=== PATIENT | male | born 1970 | race Caucasian/White ===

== ENCOUNTER → 2021-04-16 11:05 | Outpatient (BNVA) | payer OTHER, SELFPAY | PROVIDERS: Visit Provider Urology | DX: E29.1 Testicular hypofunction (principal) | CPT/HCPCS: Q3014 ==

== ENCOUNTER → 2021-05-08 13:20 | Outpatient (BNVA) | payer OTHER, SELFPAY | PROVIDERS: Visit Provider Urology | DX: E29.1 Testicular hypofunction (principal) | CPT/HCPCS: 96372; 99211 ==

== ENCOUNTER → 2021-10-02 08:27 | Outpatient (BNVA) | payer MEDICARE, MEDICAID, SELFPAY | PROVIDERS: PCP Internal Medicine; Visit Provider Urology | DX: E29.1 Testicular hypofunction (principal) | CPT/HCPCS: Q3014 ==

== ENCOUNTER → 2022-04-13 15:19 | Outpatient (REF) | payer OTHER, SELFPAY ==
--- NOTE | 2022-04-13 15:23 | HM_ITS ---
Conclusion: 1. Patient was monitored for total period of 5 days and 9 hours 2. Baseline was normal sinus rhythm with average heart of 71 beats per minute 3. No significant pauses or bradycardia 4. Very rare ectopy noted 5. No patient reported events MTDD
--- NOTE | 2022-04-13 15:23 | ECG_ITS ---
Test Reason : PALPS, CP Blood Pressure : / mmHG Vent. Rate : 068 BPM Atrial Rate : 068 BPM P-R Int : 176 ms QRS Dur : 108 ms QT Int : 374 ms P-R-T Axes : 063 022 052 degrees QTc Int : 397 ms Normal sinus rhythm Normal ECG No previous ECGs available Referred By: Teresa Kirkland Electronically Signed By:ARAM CHASE MD
== END ==
LOC: HO.CARD 15:19
PROVIDERS: Visit Provider Nurse Practitioner Family
DX: R00.2 Palpitations (principal); R07.9 Chest pain, unspecified
CPT/HCPCS: 93005; 93242

== ENCOUNTER → 2022-04-22 11:05 | Outpatient (BNVA) | payer OTHER, SELFPAY | PROVIDERS: PCP Internal Medicine; Visit Provider Urology | DX: E29.1 Testicular hypofunction (principal) | CPT/HCPCS: Q3014 ==

== ENCOUNTER → 2022-12-03 12:21 | Outpatient (BNVA) | payer OTHER, SELFPAY | PROVIDERS: PCP Internal Medicine; Visit Provider Urology | DX: E29.1 Testicular hypofunction (principal) | CPT/HCPCS: Q3014 ==

== ENCOUNTER 2023-08-04 11:00 | Outpatient (AMB) | payer OTHER, SELFPAY ==
--- NOTE | 2023-08-04 11:12 | MHC.OFFVIS ---
Intake Intake Visit Reasons: PSA/Testosterone/CBC(SET) Intake Note: Patient is Present for Follow Up LABS Urology Medication: Testosterone (States testosterone is not working) Antibiotic Allergies: None Blood Thinners: None Pharmacy: [facility] Allergies No Known Allergies Allergy (Verified 08/04/23 11:14) Medication List - Last Reconciled 08/04/23 by Jose Ramon Lujan MD sennosides (Senna Lax) 8.6 mg PO BEDTIME sertraline 25 mg PO DAILY testosterone 2 pumps topical DAILY 28 days HPI HPI Comments History of Present Illness Details Alfredo is a pleasant male. He is a patient of Dr. Soto. He is seen for the following urologic conditions - hypogonadism Stabilization of testosterone after restarting injections Six month follow-up Hypogonadism Initial testosterone 105 Current therapy 140 mg testosterone injection weekly Prior therapy AndroGel - 4 pumps Baseline on methadone with opiate hormonal suppression Laboratories - 09/14 T 676 PSA 0.8 - 04/15 T 212 PSA 0.8, 11/16 T 461 H50, PFSH Medical History Alcohol abuse Generalized anxiety disorder Insomnia Polysubstance abuse Obesity (BMI 30-39.9) Erectile dysfunction GERD (gastroesophageal reflux disease) Obstructive sleep apnea Tobacco abuse Hypercholesterolemia Social History Housing: House e-Cigarette/Vaping Use: Never Used Current occupational status: employed Review of Systems Const Denies chills and Denies fever(s) Card Reports no additional complaints and Denies syncope Resp Denies cough GI Denies abdominal pain and Denies heartburn Reports as per HPI and Denies change in libido Neuro Denies syncope Psych Denies change in libido Endo Denies change in libido Physical Exam Const General: cooperative, healthy appearing, comfortable and no acute distress Orientation/consciousness: patient oriented x3 HEENT Face and sinus: Yes normal facial exam Mouth: moist mucous membranes Neck Neck: Yes normal visual inspection, Yes full ROM and Yes trachea midline Chest Chest palpation & inspection: normal inspection of the chest Resp Effort & Inspection: normal respiratory effort, able to speak in complete sentences and no respiratory distress GI Inspection: Yes normal to inspection Back/Spine/Pelvis Cervical Spine: normal cervical lordosis Thoracic/Lumbar Spine: thoracic and lumbar spine normal to inspection Skin General skin exam: no rashes or lesions noted Neuro General: patient oriented x3, gait normal, tone normal and moves all extremities Extrem General: Yes normal to inspection and Yes capillary refill normal Assessment & Plan Assessment & Plan (1) Hypogonadism in male: Code(s): E29.1 - Testicular hypofunction Plan Six month follow-up labs Orders: Orders Testosterone, Total 6 Months E29.1 - Testicular hypofunction Complete Blood Count no Diff 6 Months E29.1 - Testicular hypofunction Prostate Specific Antigen 6 Months E29.1 - Testicular hypofunction Medications: New testosterone cypionate (Depo-Testosterone) 140 mg (0.7 mL) subcut QWEEK 4 mL 5RF 4 weeks E29.1 - Testicular hypofunction needle (disp) 18 G (BD Regular Bevel [place]) To draw up medication 30 ea 0RF E29.1 - Testicular hypofunction needle (disp) 22 G For testosterone injection weekly 30 ea 0RF E29.1 - Testicular hypofunction, E34.9 - Endocrine disorder, unspecified Patient Instructions: Imaging studies, laboratory and physical exam results were discussed and reviewed in detail. No major barriers to patient understanding were identified. An opportunity to ask questions regarding the treatment plan was provided. All questions were answered. The patient expressed understanding and agreement with the above treatment plan. The patient is aware they should contact our office by phone for worsening of their current condition or the appearance of new urologic symptoms. Compliance is encouraged with any medications and followup testing that is ordered. It is a privilege to participate in the urologic care of your patient. If you have any questions or concerns regarding treatment for the above conditions, or other urologic issues, please do not hesitate to contact me. The office telephone contact is [phone]. This note is constructed using voice recognition software. While every effort has been made to ensure accuracy operations and maintenance manager errors may have been included. Yours sincerely, Dr Jose Ramon Lujan MD, [facility] - Urology Providers of Expert, Compassionate Care for the Genitourinary System Coding Level of Care Code Est Pt Level 3 (55951) Diagnoses Hypogonadism in male E29.1
== END 2023-08-04 11:59 | disposition home or self-care (01) ==
PROVIDERS: PCP Internal Medicine; Visit Provider Urology
DX: E29.1 Testicular hypofunction (principal)
CPT/HCPCS: 99213

== ENCOUNTER → 2023-08-04 11:00 | Outpatient (BNVA) | payer OTHER, SELFPAY | PROVIDERS: PCP Internal Medicine; Visit Provider Urology | DX: E29.1 Testicular hypofunction (principal) | CPT/HCPCS: 99212 ==

== ENCOUNTER 2024-03-21 10:15 | Outpatient (AMB) | payer OTHER, SELFPAY ==
--- NOTE | 2024-03-21 10:35 | A.OFFVIS_ITS ---
Intake Visit Reasons: follow up/Labs Allergies No Known Allergies Allergy (Verified 08/04/23 11:14) Medication List - Last Reconciled 03/21/24 by Jose Ramon Lujan MD needle (disp) 18 G (BD Regular Bevel [place]) To draw up medication needle (disp) 22 G For testosterone injection weekly sennosides (Senna Lax) 8.6 mg PO BEDTIME sertraline 25 mg PO DAILY testosterone cypionate (Depo-Testosterone) 140 mg (0.7 mL) subcut QWEEK 4 weeks HPI Comments Details: Alfredo is a pleasant male. He is a patient of Dr. Soto. He is seen for the following urologic conditions - hypogonadism Telemedicine Evaluation 15 min Consultation [email or web address] Brandie Video attempted Stabilization of testosterone after restarting injections Lab work normal Six month follow-up Hypogonadism Initial testosterone 105 Current therapy 140 mg testosterone injection weekly Prior therapy AndroGel - 4 pumps Baseline on methadone with opiate hormonal suppression Laboratories - 09/14 T 676 PSA 0.8 - 04/15 T 212 PSA 0.8, 11/16 T 461 H50, 03/17 PSA 1.1 T 645 CBC 49 PFSH Medical History Alcohol abuse Generalized anxiety disorder Insomnia Polysubstance abuse Obesity (BMI 30-39.9) Erectile dysfunction GERD (gastroesophageal reflux disease) Obstructive sleep apnea Tobacco abuse Hypercholesterolemia Social History Housing: House e-Cigarette/Vaping Use: Never Used Current occupational status: employed Review of Systems Const All systems reviewed & are unremarkable except as noted in HPI and below Reports no additional complaints Resp Reports no additional complaints GI Reports no additional complaints Reports as per HPI Musc Reports no additional complaints Physical Exam Telemedicine evaluation Appropriate responses Regular breathing rate and rhythm HEENT Head: Yes normal to inspection Ears: hearing grossly normal bilaterally Eyes General: appearance normal, both eyes and all related structures Neck Neck: Yes normal visual inspection Chest Chest palpation & inspection: normal inspection of the chest Resp Effort & Inspection: normal respiratory effort and able to speak in complete sentences Telehealth Telehealth Telehealth Platform: [employer] Location of provider rendering services: practice address Location of patient: address on file Patient Identification confirmed using: Name, : Yes Telehealth method: video Patient verbally consented to treatment: Yes Patient verbally consented to billing insurance company: Yes Patient informed of any privacy concerns related to visit: Yes Minutes spent on Phone/Video with Pt.: 15 Assessment & Plan Assessment & Plan (1) Hypogonadism in male: Code(s): E29.1 - Testicular hypofunction Category: Medical Plan Six-month follow-up lab work orifice Orders: Orders Prostate Specific Antigen 6 Months E29.1 - Testicular hypofunction Complete Blood Count no Diff 6 Months E29.1 - Testicular hypofunction Testosterone, Total 6 Months E29.1 - Testicular hypofunction Medications: Refilled testosterone cypionate (Depo-Testosterone) 140 mg (0.7 mL) subcut QWEEK 4 weeks 4 mL 5RF E29.1 - Testicular hypofunction Patient Instructions: Imaging studies, laboratory and physical exam results were discussed and reviewed in detail. No major barriers to patient understanding were identified. An opportunity to ask questions regarding the treatment plan was provided. All questions were answered. The patient expressed understanding and agreement with the above treatment plan. The patient is aware they should contact our office by phone for worsening of their current condition or the appearance of new urologic symptoms. Compliance is encouraged with any medications and followup testing that is ordered. It is a privilege to participate in the urologic care of your patient. If you have any questions or concerns regarding treatment for the above conditions, or other urologic issues, please do not hesitate to contact me. The office telephone contact is [phone]. This note is constructed using voice recognition software. While every effort has been made to ensure accuracy chemical tester errors may have been included. Yours sincerely, Dr Jose Ramon Lujan MD, [facility] - Urology Providers of Expert, Compassionate Care for the Genitourinary System Coding Level of Care Code Tele Est Pt Level 3 (04565) Diagnoses Hypogonadism in male E29.1
== END 2024-03-21 10:55 | disposition home or self-care (01) ==
LOC: HO.HUSH 10:15
PROVIDERS: PCP Internal Medicine; Visit Provider Urology
DX: E29.1 Testicular hypofunction (principal)
CPT/HCPCS: 99213

== ENCOUNTER → 2024-03-21 10:15 | Outpatient (BNVA) | payer OTHER, SELFPAY | PROVIDERS: PCP Internal Medicine; Visit Provider Urology ==